=== PATIENT | male | born 1980 | race Caucasian/White ===

== ENCOUNTER → 2017-04-13 | Outpatient (CLI) | payer OTHER ==
--- NOTE | 2017-04-13 15:18 | KCIC ---
CHEST PA ONLY Clinical Indication: Positive reactor, tuberculosis Comparison: None. Findings: The cardiomediastinal silhouette is normal. Lungs are clear. There is no pneumothorax. No pleural effusion is appreciated. No acute bone abnormality. IMPRESSION: No acute cardiopulmonary process. Electronically signed by: Fernando Booth MD (04/13/2017 3:15 PM) [id number]
== END | disposition home or self-care (01) ==
LOC: KCIC 14:39
PROVIDERS: ATTEND Family Medicine
DX: R76.11 Nonspecific reaction to tuberculin skin test without active tuberculosis (principal)
CPT/HCPCS: 71010

== ENCOUNTER 2020-11-25 16:42 | Inpatient (IN) | payer OTHER ==
[~2020-11-25] VITALS: Ht 162.6 cm; Wt 78.2 kg
[2020-11-25] MEDS ORDERED: MORPHINE SULFATE 2 MG/ML VIAL. IV/SQ PRN (17:15)
[2020-11-25] MEDS ORDERED: LIDO:MAALOX 1:1 20 ML SINGLE DOSE. SWSW ONE (17:15)
[2020-11-25] MEDS ORDERED: IV NORMAL SALINE 1000ML BAG 1,000 ML IV ONE (17:15)
[2020-11-25] MEDS ORDERED: FAMOTIDINE 20 MG/2 ML VIAL IVP ONE (17:15)
[2020-11-25] MEDS ORDERED: LABETALOL 20 MG/4 ML DISP.SYRIN. IVP ONE (17:15)
--- NOTE | 2020-11-25 17:20 | PHYS DOC ---
Past Medical History Past Medical History: Hypertension General Adult EDM: Chief Complaint: HEADACHE HPI: HPI: Patient is a 39 year old male with history of hypertension not on any medicines who presents to the ED today complaining of a sudden onset of moderate general ized but mostly frontal headache and epigastric pain, symptoms began a couple minutes prior to coming to the ED while he was watching his son's soccer game. Patient denies any nausea, vomiting. Denies any photophobia. Denies any chest pain or shortness of breath. Review of Systems: Review of Systems: Constitutional: Denies fever or chills. [] Eyes: Denies change in visual acuity. [] HENT: Denies nasal congestion or sore throat. [] Respiratory: Denies cough or shortness of breath. [] Cardiovascular: Denies chest pain or edema. [] GI: Reports epigastric pain, denies nausea, vomiting, bloody stools or diarrhea. [] : Denies dysuria. [] Musculoskeletal: Denies back pain or joint pain. [] Integument: Denies rash. [] Neurologic: Reports headache, denies focal weakness or sensory changes. [] Psychiatric: Denies depression or anxiety. [] Heart Score: C/O Chest Pain: No HEART Score for Chest Pain: HEART Score for Chest Pain Response (Comments) Value History Slighlty/Non-Suspicious 0 ECG Normal 0 Age < 45 0 Risk Factors 1 or 2 Risk Factors 1 Troponin < Normal Limit 0 Total 1 Risk Factors: Risk Factors: DM, Current or recent (<one month) smoker, HTN, HLP, family history of CAD, obesity. Risk Scores: Score 0 - 3: 2.5% MACE over next 6 weeks - Discharge Home Score 4 - 6: 20.3% MACE over next 6 weeks - Admit for Clinical Observation Score 7 - 10: 72.7% MACE over next 6 weeks - Early Invasive Strategies Current Medications: Current Medications Medications (Trade) Dose Ordered Sig/Ari Start Time Stop Time Status Last Admin Dose Admin Famotidine (Pepcid Vial) 20 mg 1X ONCE 11/25/20 17:15 11/25/20 17:16 DC Labetalol HCl (Normodyne Iv Push) 10 mg 1X ONCE 11/25/20 17:15 11/25/20 17:16 DC Morphine Sulfate (Morphine Sulfate) 2 mg PRN Q15MIN PRN 11/25/20 17:15 11/26/20 17:14 Multi-Ingredient Mouthwash/Gargle (Gi Cocktail) 20 ml 1X ONCE 11/25/20 17:15 11/25/20 17:16 DC Sodium Chloride 1,000 ml @ 1,000 mls/hr 1X ONCE 11/25/20 17:15 11/25/20 18:14 Allergies: Allergies: Allergies Coded Allergies Type Severity Reaction Last Updated Verified No Known Drug Allergies 11/25/20 No Physical Exam: PE: Constitutional: Well developed, well nourished, no acute distress, non-toxic appearance. [] HENT: Normocephalic, atraumatic, bilateral external ears normal, oropharynx moist, no oral exudates, nose normal. [] Eyes: PERRLA, EOMI, conjunctiva normal, no discharge. [] Neck: Normal range of motion, no tenderness, supple, no stridor. [] Cardiovascular:Heart rate regular rhythm, no murmur [] Lungs & Thorax: Bilateral breath sounds clear to auscultation [] Abdomen: Bowel sounds normal, soft, no tenderness, no masses, no pulsatile masses. [] Skin: Warm, dry, no erythema, no rash. [] Back: No tenderness, no CVA tenderness. [] Extremities: No tenderness, no cyanosis, no clubbing, ROM intact, no edema. [] Neurologic: Alert and oriented X 3, normal motor function, normal sensory function, no focal deficits noted. Cranial nerves II through XII intact Psychologic: Affect normal, judgement normal, mood normal. [] EKG: EK interpreted by Dr. Livingston sinus rhythm Hr 61 no STEMI[] [address] Cardozo sinus rhythm HR 87 no STEMI Radiology/Procedures: Radiology/Procedures: []PROCEDURE: CT HEAD WO CONTRAST CT head without contrast 11/25/2020. Reason for exam: Sudden onset of headache. Noncontrast images were performed. Exposure: One or more of the following individualized dose reduction techniques were utilized for this examination: 1. Automated exposure control 2. Adjustment of the mA and/or kV according to patient size 3. Use of iterative reconstruction technique. FINDINGS: There is no apparent intracranial hemorrhage or abnormal extra-axial fluid collection. No mass or region of abnormal density is identified. The ventricles and basilar cisterns are normally positioned. The sinuses and mastoid air cells are clear. IMPRESSION: No apparent acute abnormality. Electronically signed by: Allison Parker Jr., MD (11/25/2020 5:28 PM) [facility] DICTATED and SIGNED BY: ALLISON PARKER Jr, MD DATE: 11/25/20 [id number] 0 PROCEDURE: ACUTE ABDOMEN SERIES Abdomen series including PA chest 11/25/2020. Reason for exam: Epigastric pain. No free air is seen. Gas is present mostly in the colon. There is no evidence of obstruction. No abnormal masses or gas collections are seen. PA view of the chest shows no infiltrate or effusion. Heart size is normal. IMPRESSION: Nonobstructive gas pattern. Electronically signed by: Allison Parker Jr., MD (11/25/2020 5:58 PM) [facility] DICTATED and SIGNED BY: ALLISON PARKER Jr, MD DATE: 11/25/20 [id number] 0 Course & Med Decision Making: Course & Med Decision Making Pertinent Labs and Imaging studies reviewed. (See chart for details) This is a 39-year-old male patient presented to the ED today with a sudden onset of a headache and epigastric pain, symptoms began a couple minutes prior to coming to the ED. Vitals on arrival to the ED temperature 97.4, heart rate 65, respirations 16 on room air, O2 sats 100%, blood pressure 209/107, patient reports previous history of hypertension, he states he never followed up with anyone. CBC with no acute findings, CMP with no acute findings. Troponin 0 0.017, repeat troponin went slightly up to 0.026. EKG was negative, chest x-ray is negative. CT of the head is negative Patient was given Lovenox IM in the ED. Spoke with Dr. Root who will follow up with patient Spoke with Dr. Hui who accepted patient for admission Lawrence Disclaimer: Lawrence Disclaimer: This electronic medical record was generated, in whole or in part, using a voice recognition dictation system. Departure Departure Impression: Primary Impression: Headache Qualified Codes: R51.9 - Headache, unspecified Additional Impressions: Epigastric pain Elevated troponin Accelerated hypertension Disposition: 09 ADMITTED INPT THIS HOSP Condition: STABLE Referrals: NO PCP (PCP) EHSAN GASCA APRN Nov 25, 2020 17:20
--- NOTE | 2020-11-25 17:30 | RAD ---
CT head without contrast 11/25/2020. Reason for exam: Sudden onset of headache. Noncontrast images were performed. Exposure: One or more of the following individualized dose reducti on techniques were utilized for this examination: 1. Automated exposure control 2. Adjustment of th e mA and/or kV according to patient size 3. Use of iterative reconstruction technique. FINDINGS: There is no apparent intracranial hemorrhage or abnormal extra-axial fluid collection. No m ass or region of abnormal density is identified. The ventricles and basilar cisterns are normally pos itioned. The sinuses and mastoid air cells are clear. IMPRESSION: No apparent acute abnormality. Electronically signed by: Kenji Parker Jr., MD (11/25/2020 5:28 PM) [facility]
[2020-11-25 17:33] LABS: BASO # 0.1 x10^3/uL (0.0-0.2); BASO % 1 % (0-3); EOS # 0.1 x10^3/uL (0.0-0.7); EOS % 1 % (0-3); HEMATOCRIT 45.3 % (39.0-53.0); HEMOGLOBIN 15.5 g/dL (13.0-17.5); LYMPH # 2.3 x10^3/uL (1.0-4.8); LYMPH % 31 % (24-48); MEAN CORPUSCULAR HEMOGLOBIN 29 pg (25-35); MEAN CORPUSCULAR HGB CONC 34 g/dL (31-37); MEAN CORPUSCULAR VOLUME 86 fL (79-100); MONO % 14 % (0-9); NEUT % 53 % (31-73); PLATELET COUNT 226 x10^3/uL (140-400); RED BLOOD COUNT 5.28 x10^6/uL (4.30-5.70); RED CELL DISTRIBUTION WIDTH 13.2 % (11.5-14.5); WHITE BLOOD COUNT 7.5 x10^3/uL (4.0-11.0)
--- NOTE | 2020-11-25 18:00 | RAD ---
Abdomen series including PA chest 11/25/2020. Reason for exam: Epigastric pain. No free air is seen. Gas is present mostly in the colon. There is no evidence of obstruction. No abno rmal masses or gas collections are seen. PA view of the chest shows no infiltrate or effusion. Heart size is normal. IMPRESSION: Nonobstructive gas pattern. Electronically signed by: Kenji Parker Jr., MD (11/25/2020 5:58 PM) [facility]el[facility]
[2020-11-25 18:11] LABS: CALCIUM 9.1 mg/dL (8.5-10.1); GFR 84.1; POTASSIUM 3.9 mmol/L (3.5-5.1)
[2020-11-25] MEDS ORDERED: KETOROLAC 30 MG/ML VIAL. IVP ONE (18:15)
[2020-11-25] MEDS ORDERED: PROCHLORPERAZINE 10 MG/2 ML VIAL. IV ONE (18:15)
[2020-11-25] MEDS ORDERED: methylPREDNISolone SOD SUCC PF 125 MG/2 ML VIAL. IV ONE (18:15)
[2020-11-25 18:16] LABS: ALBUMIN 4.1 g/dL (3.4-5.0); ALBUMIN/GLOBULIN RATIO 1.2 (1.0-1.7); MAGNESIUM 1.6 mg/dL (1.8-2.4); TOTAL BILIRUBIN 0.6 mg/dL (0.2-1.0); TOTAL PROTEIN 7.6 g/dL (6.4-8.2)
[2020-11-25 19:03] LABS: BILIRUBIN,URINE NEGATIVE (NEG); CLARITY,URINE CLEAR; COLOR,URINE YELLOW; NITRITE,URINE NEGATIVE (NEG); PH,URINE 5.5 (<5.0-8.0); PROTEIN,URINE NEGATIVE (NEG-TRACE); UROBILINOGEN,URINE 0.2 mg/dL (0.2 mg/dL)
--- NOTE | 2020-11-25 19:08 | EKG ---
[facility] [address] [place] [address] Test Date: 2020-11-25 Test Time: 17:04:11 Pat Name: GENIA BOLANOS Department: Room: Gender: General Technician: : 1980 Requested By: EHSAN GASCA Order Number: [id number] Reading MD: Measurements Intervals [place] Rate: 61 P: 42 SD: 146 QRS: 45 QRSD: 98 T: 114 QT: 380 QTc: 384 Interpretive Statements SINUS RHYTHM QRS(T) CONTOUR ABNORMALITY CONSIDER ANTEROLATERAL MYOCARDIAL DAMAGE POSSIBLY ABNORMAL ECG RI6.01 No previous ECG available for comparison
[2020-11-25 19:10] LABS: BARBITURATES NEG (NEG); BENZODIAZEPINES NEG (NEG); CANNABINOIDS NEG (NEG); COCAINE NEG (NEG); METHADONE NEG (NEG); OPIATES NEG (NEG); PHENCYCLIDINE NEG (NEG)
[2020-11-25 19:12] LABS: BACTERIA,URINE 0 /HPF (0-FEW); RBC,URINE OCC /HPF (0-2); WBC,URINE OCC /HPF (0-4)
[2020-11-25 19:16] LABS: AMPHETAMINE/METHAMPHETAMINE NEG (NEG)
[2020-11-25] MEDS ORDERED: LABETALOL 20 MG/4 ML DISP.SYRIN. IVP PRN (22:00)
[2020-11-25] MEDS ORDERED: MORPHINE SULFATE 2 MG/ML VIAL. IV PRN (22:00)
[2020-11-25] MEDS ORDERED: ONDANSETRON PF 4 MG/2 ML VIAL. IV PRN (22:00)
--- NOTE | 2020-11-25 22:44 | EKG ---
[facility] [address] [place] [address] Test Date: 2020-11-25 Test Time: 21:18:12 Pat Name: GENIA BOLANOS Department: Room: Gender: Station Detective: : 1980 Requested By: EHSAN GASCA Order Number: [id number] Reading MD: Measurements Intervals [place] Rate: 87 P: 38 [place]: 144 QRS: 27 QRSD: 102 T: 48 QT: 352 QTc: 429 Interpretive Statements SINUS RHYTHM LEFT ATRIAL ABNORMALITY ABNORMAL ECG RI6.01 No previous ECG available for comparison
[2020-11-25 23:00] VITALS: BP 162/99
[2020-11-26] MEDS ORDERED: ANTI-COAG MONITOR BY PHARMACY. MC PRN (02:00)
[2020-11-26 03:00] VITALS: BP 125/63
[2020-11-26 05:27] LABS: BASO % 0 % (0-3); EOS % 0 % (0-3); HEMATOCRIT 45.1 % (39.0-53.0); LYMPH # 0.9 x10^3/uL (1.0-4.8); LYMPH % 8 % (24-48); MEAN CORPUSCULAR HEMOGLOBIN 29 pg (25-35); MEAN CORPUSCULAR HGB CONC 33 g/dL (31-37); MEAN CORPUSCULAR VOLUME 88 fL (79-100); MONO # 0.1 x10^3/uL (0.0-1.1); MONO % 1 % (0-9); NEUT # 10.2 x10^3/uL (1.8-7.7); NEUT % 91 % (31-73); PLATELET COUNT 247 x10^3/uL (140-400); RED BLOOD COUNT 5.15 x10^6/uL (4.30-5.70); RED CELL DISTRIBUTION WIDTH 13.3 % (11.5-14.5); WHITE BLOOD COUNT 11.2 x10^3/uL (4.0-11.0)
[2020-11-26 05:53] LABS: ALBUMIN 3.8 g/dL (3.4-5.0); CALCIUM 9.4 mg/dL (8.5-10.1); CREATININE 1.1 mg/dL (0.7-1.3); GFR 75.3; TOTAL BILIRUBIN 0.5 mg/dL (0.2-1.0); TOTAL PROTEIN 7.6 g/dL (6.4-8.2)
[2020-11-26 07:00] VITALS: BP 133/81
[2020-11-26 08:07] LABS: % BANDS 6 % (0-9); % LYMPHS 14 % (24-48); % MONOS 1 % (0-10); % SEGS 79 % (35-66); PLT ESTIMATE ADEQUATE (ADEQUATE)
[2020-11-26 11:00] VITALS: BP 139/75
--- NOTE | 2020-11-26 11:33 | PDOC2 ---
[place] 11/26/20 1133: CARDIAC CONSULT DATE OF CONSULT Date of Consult DATE: 11/26/20 TIME: 11:29 REASON FOR CONSULT Reason for Consult: epigastric pain REFERRING PHYSICIAN Referring Physician: Andressa Roque APRN SOURCE Source: Chart review, Patient HISTORY OF PRESENT ILLNESS HISTORY OF PRESENT ILLNESS This is a 39 yo male who presented secondary to sudden onset of epigastric pain and frontal headache that began while he was sitting watching his son's soccer game yesterday. Patient has a history of hypertension. Was on medication approximately 4 years ago. Blood pressure improved and was taken off therapy about 2 years ago. Has not had blood pressure checked some time. He denies any chest pain, shortness of breath, dizziness, diaphoresis, or nausea/vomiting. Blood pressure was significantly elevated upon arrival. Blood pressure now controlled and symptoms have resolved. PAST MEDICAL HISTORY Cardiovascular: HTN PAST SURGICAL HISTORY Past Surgical History: No pertinent history FAMILY HISTORY Family History: Other (noncontributory ) SOCIAL HISTORY Smoke: No ALCOHOL: none Drugs: None Lives: with Family CURRENT MEDICATIONS CURRENT MEDICATIONS Current Medications Medications (Trade) Dose Ordered Sig/Ari Route PRN Reason Start Time Stop Time Status Last Admin Dose Admin Sodium Chloride 1,000 ml @ 1,000 mls/hr 1X ONCE IV 11/25/20 17:15 11/25/20 18:14 DC 11/25/20 17:34 Labetalol HCl (Normodyne Iv Push) 10 mg 1X ONCE IVP 11/25/20 17:15 11/25/20 17:16 DC 11/25/20 17:36 Multi-Ingredient Mouthwash/Gargle (Gi Cocktail) 20 ml 1X ONCE SWSW 11/25/20 17:15 11/25/20 17:16 DC 11/25/20 17:39 Famotidine (Pepcid Vial) 20 mg 1X ONCE IVP 11/25/20 17:15 11/25/20 17:16 DC 11/25/20 17:40 Methylprednisolone Sodium Succinate (SOLU-Medrol 125MG VIAL) 125 mg 1X ONCE IV 11/25/20 18:15 11/25/20 18:17 DC 11/25/20 18:29 Ketorolac Tromethamine (Toradol 30mg Vial) 30 mg 1X ONCE IVP 11/25/20 18:15 11/25/20 18:17 DC 11/25/20 18:28 Prochlorperazine Edisylate (Compazine) 10 mg 1X ONCE IV 11/25/20 18:15 11/25/20 18:17 DC 11/25/20 18:25 Enoxaparin Sodium (Lovenox 80mg Syringe) 80 mg Q12HR SQ 11/25/20 22:00 11/26/20 08:36 Info (Anti-Coagulation Monitoring By Pharmacy) 1 each PRN DAILY PRN MC SEE COMMENTS 11/26/20 02:00 11/26/20 01:49 ALLERGIES ALLERGIES: Coded Allergies: No Known Drug Allergies (Unverified , 11/25/20) ROS Review of System 14 point ROS conducted with pertinent positives noted above in hPI PHYSICAL EXAM General: Alert, Oriented X3, Cooperative, No acute distress HEENT: Atraumatic Lungs: Clear to auscultation Heart: Regular rate, Normal S1, Normal S2 Abdomen: Soft, No tenderness Extremities: No edema, Normal pulses Skin: No significant lesion Neuro: Normal speech, Sensation intact Psych/Mental Status: Mental status NL, Mood NL MUSCULOSKELETAL: Osteoarthritic changes both hands VITALS/I&O VITALS/I&O: Vital Signs Date Time Temp Pulse Resp B/P (MAP) Pulse Ox O2 Delivery O2 Flow Rate FiO2 11/26/20 11:00 98.3 84 16 139/75 (96) 96 Room Air 98.3 I & O 11/25/20 11/25/20 11/26/20 15:00 23:00 07:00 Intake Total 0 ml Output Total 300 ml Balance -300 ml LABS Lab: Laboratory Tests Test 11/25/20 17:05 11/25/20 18:57 11/25/20 20:08 11/25/20 23:16 White Blood Count 7.5 x10^3/uL (4.0-11.0) Red Blood Count 5.28 x10^6/uL (4.30-5.70) Hemoglobin 15.5 g/dL (13.0-17.5) Hematocrit 45.3 % (39.0-53.0) Mean Corpuscular Volume 86 fL (79-100) Mean Corpuscular Hemoglobin 29 pg (25-35) Mean Corpuscular Hemoglobin Concent 34 g/dL (31-37) Red Cell Distribution Width 13.2 % (11.5-14.5) Platelet Count 226 x10^3/uL (140-400) Neutrophils (%) (Auto) 53 % (31-73) Lymphocytes (%) (Auto) 31 % (24-48) Monocytes (%) (Auto) 14 % (0-9) H Eosinophils (%) (Auto) 1 % (0-3) Basophils (%) (Auto) 1 % (0-3) Neutrophils # (Auto) 4.0 x10^3/uL (1.8-7.7) Lymphocytes # (Auto) 2.3 x10^3/uL (1.0-4.8) Monocytes # (Auto) 1.0 x10^3/uL (0.0-1.1) Eosinophils # (Auto) 0.1 x10^3/uL (0.0-0.7) Basophils # (Auto) 0.1 x10^3/uL (0.0-0.2) Sodium Level 138 mmol/L (136-145) Potassium Level 3.9 mmol/L (3.5-5.1) Chloride Level 100 mmol/L (98-107) Carbon Dioxide Level 28 mmol/L (21-32) Anion Gap 10 (6-14) Blood Urea Nitrogen 12 mg/dL (8-26) Creatinine 1.0 mg/dL (0.7-1.3) Estimated GFR (Cockcroft-Gault) 84.1 BUN/Creatinine Ratio 12 (6-20) Glucose Level 134 mg/dL (70-99) H Calcium Level 9.1 mg/dL (8.5-10.1) Magnesium Level 1.6 mg/dL (1.8-2.4) L Total Bilirubin 0.6 mg/dL (0.2-1.0) Aspartate Amino Transferase (AST) 40 U/L (15-37) H Alanine Aminotransferase (ALT) 55 U/L (16-63) Alkaline Phosphatase 97 U/L (46-116) Troponin I Quantitative < 0.017 ng/mL (0.000-0.055) 0.026 ng/mL (0.000-0.055) < 0.017 ng/mL (0.000-0.055) VU-[id number]-Type Natriuretic Peptide 15 pg/mL (0-124) Total Protein 7.6 g/dL (6.4-8.2) Albumin 4.1 g/dL (3.4-5.0) Albumin/Globulin Ratio 1.2 (1.0-1.7) Lipase 131 U/L (73-393) Thyroid Stimulating Hormone (TSH) 2.563 uIU/mL (0.358-3.74) Urine Collection Type Unknown Urine Color Yellow Urine Clarity Clear Urine pH 5.5 (<5.0-8.0) Urine Specific [place] 1.020 (1.000-1.030) Urine Protein Negative mg/dL (NEG-TRACE) Urine Glucose (UA) Negative mg/dL (NEG) Urine Ketones (Stick) Negative mg/dL (NEG) Urine Blood Negative (NEG) Urine Nitrite Negative (NEG) Urine Bilirubin Negative (NEG) Urine Urobilinogen Dipstick 0.2 mg/dL (0.2 mg/dL) Urine Leukocyte Esterase Negative (NEG) Urine RBC Occ /HPF (0-2) Urine WBC Occ /HPF (0-4) Urine Squamous Epithelial Cells Occ /LPF Urine Bacteria 0 /HPF (0-FEW) Urine Mucus Slight /LPF Urine Opiates Screen Neg (NEG) Urine Methadone Screen Neg (NEG) Urine Barbiturates Neg (NEG) Urine Phencyclidine Screen Neg (NEG) Urine Amphetamine/Methamphetamine Neg (NEG) Urine Benzodiazepines Screen Neg (NEG) Urine Cocaine Screen Neg (NEG) Urine Cannabinoids Screen Neg (NEG) Urine Ethyl Alcohol Neg (NEG) Test 11/26/20 04:00 White Blood Count 11.2 x10^3/uL (4.0-11.0) H Red Blood Count 5.15 x10^6/uL (4.30-5.70) Hemoglobin 15.0 g/dL (13.0-17.5) Hematocrit 45.1 % (39.0-53.0) Mean Corpuscular Volume 88 fL (79-100) Mean Corpuscular Hemoglobin 29 pg (25-35) Mean Corpuscular Hemoglobin Concent 33 g/dL (31-37) Red Cell Distribution Width 13.3 % (11.5-14.5) Platelet Count 247 x10^3/uL (140-400) Neutrophils (%) (Auto) 91 % (31-73) H Lymphocytes (%) (Auto) 8 % (24-48) L Monocytes (%) (Auto) 1 % (0-9) Eosinophils (%) (Auto) 0 % (0-3) Basophils (%) (Auto) 0 % (0-3) Neutrophils # (Auto) 10.2 x10^3/uL (1.8-7.7) H Lymphocytes # (Auto) 0.9 x10^3/uL (1.0-4.8) L Monocytes # (Auto) 0.1 x10^3/uL (0.0-1.1) Eosinophils # (Auto) 0.0 x10^3/uL (0.0-0.7) Basophils # (Auto) 0.0 x10^3/uL (0.0-0.2) Segmented Neutrophils % 79 % (35-66) H Band Neutrophils % 6 % (0-9) Lymphocytes % 14 % (24-48) L Monocytes % 1 % (0-10) Platelet Estimate Adequate (ADEQUATE) Sodium Level 139 mmol/L (136-145) Potassium Level 4.0 mmol/L (3.5-5.1) Chloride Level 102 mmol/L (98-107) Carbon Dioxide Level 25 mmol/L (21-32) Anion Gap 12 (6-14) Blood Urea Nitrogen 14 mg/dL (8-26) Creatinine 1.1 mg/dL (0.7-1.3) Estimated GFR (Cockcroft-Gault) 75.3 BUN/Creatinine Ratio 13 (6-20) Glucose Level 188 mg/dL (70-99) H Calcium Level 9.4 mg/dL (8.5-10.1) Total Bilirubin 0.5 mg/dL (0.2-1.0) Aspartate Amino Transferase (AST) 37 U/L (15-37) Alanine Aminotransferase (ALT) 50 U/L (16-63) Alkaline Phosphatase 84 U/L (46-116) Total Protein 7.6 g/dL (6.4-8.2) Albumin 3.8 g/dL (3.4-5.0) Albumin/Globulin Ratio 1.0 (1.0-1.7) Laboratory Tests 11/25/20 17:05 11/26/20 04:00 Laboratory Tests 11/25/20 17:05 11/26/20 04:00 ASSESSMENT/PLAN ASSESSMENT/PLAN 1. Hypertensive urgency; now controlled 2. Headache; CT head without acute findings, resolved 3. Epigastric pain; non-cardiac. AMI ruled out Recommendations Norvasc added for BP control Home BP monitoring Outpatient echo as arranged Follow up in our office with Dr. Sampson as scheduled Okay to discharge from a CV standpoint. ALLISON SAMPSON MD 11/26/20 1636: CARDIAC CONSULT ASSESSMENT/PLAN ASSESSMENT/PLAN Patient seen and evaluated He is feeling better this morning. I agree with our nurse practitioners assessment and plan. Hypertensive urgency. Significantly better control on Norvasc. Continue present treatment. Resolving headache. CT scan of the head is negative for acute findings. Epigastric pain. Infarction ruled out. Continuing blood pressure control. Outpatient echo and office follow-up. Thank you for allowing us to participate in the care of your patient. NAOMY HOFFMANN APRN Nov 26, 2020 11:33 ALLISON SAMPSON MD Nov 26, 2020 16:36
[2020-11-26] MEDS ORDERED: amLODIPine BESYLATE 5 MG TABLET PO SCH (12:00)
--- NOTE | 2020-11-26 12:48 | HP ---
ADMIT DATE: 11/25/2020 CHIEF COMPLAINT: Abdominal pain, chest pain and headache. HISTORY OF PRESENT ILLNESS: The patient is a pleasant 39-year-old male who was out with his in a store and developed chest pain, abdominal pain and a headache. He presented to the ER for evaluation and was noted to have a hypertensive emergency. Rates his symptoms at 7/10. He has associated weakness, has been occurring off and on for a few hours, better with sitting, worse with movement. I discussed the case with ER physician. We are going to admit the patient and consult Cardiology. PAST MEDICAL HISTORY: Hypertension, probable noncompliance. ALLERGIES: None. FAMILY HISTORY: Hypertension. 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 He does not drink, smoke or take drugs. He is . MEDICATIONS: Reviewed, please see the MRAD. REVIEW OF SYSTEMS: GENERAL: No history of weight change, weakness or fevers. SKIN: No bruising, hair changes or rashes. EYES: No blurred, double or loss of vision. NOSE AND THROAT: No history of nosebleeds, hoarseness or sore throat. HEART: No history of palpitations, chest pain or shortness of breath on exertion. LUNGS: Denies cough, hemoptysis, wheezing or shortness of breath. GASTROINTESTINAL: Denies changes in appetite, nausea, vomiting, diarrhea or constipation. GENITOURINARY: No history of frequency, urgency, hesitancy or nocturia. NEUROLOGIC: Denies history of numbness, tingling, tremor or weakness. PSYCHIATRIC: No history of panic, anxiety or depression. ENDOCRINE: No history of heat or cold intolerance, polyuria or polydipsia. EXTREMITIES: Denies muscle weakness, joint pain, pain on walking or stiffness. PHYSICAL EXAMINATION: VITAL SIGNS: His pressures have been ranging from 209/107 down to 137/75 this morning. GENERAL: No apparent distress. Alert and oriented. HEENT: Normal cephalic atraumatic, external auditory canals are patent EYES: Extraocular muscles are intact, pupils are equally round and reactive to light and accommodation MUSCULOSKELETAL: Well developed, well nourished, good range of motion ENDOCRINE: No thyromegaly was palpated LYMPHATICS: No cervical chain or axillary nodes were noted HEMATOPOIETIC: No bruising NECK: Supple, no JVD, no thyromegaly was noted. LUNGS: Clear to auscultation in all lung brasher without rhonchi or wheezing. HEART: RRR, S1, S2 present. Peripheral pulses intact, no obvious murmurs were noted. ABDOMEN: Soft, nontender. Positive bowel sounds no organomegaly, normal bowel sounds. EXTREMITIES: Without any cyanosis, clubbing, or edema. Pedal pulses intact, Homans sign is negative. NEUROLOGIC: Normal speech, normal tone. A & O x3, moves all extremities, no obvious focal deficits. PSYCHIATRIC: Normal affect, normal mood. Stable. SKIN: No ulcerations or rashes, good skin turgor, no jaundice. VASCULAR: Good capillary refill, neurovascular bundle appears to be intact. LABORATORY DATA: White count 11, hemoglobin 15 and platelets 247. Electrolytes normal other than a glucose of 188. Drug screen negative. Urinalysis negative. CT of the head negative. Abdominal series, nonobstructive gas pattern. ASSESSMENT AND PLAN: Resolving hypertensive urgency. The patient has been admitted. We have consulted Cardiology. We will continue antihypertensive regimen. Trend labs. Cardiac monitoring. DVT prophylaxis. Full code. We started him on p.r.n. labetalol. We will go ahead and start Norvasc 10 p.o. every day. Await Cardiology input. PROGNOSIS: Guarded, but improving. HERMILA VILLA DO DR: AYO/rolando JOB#: [id number] / [id number]
--- NOTE | 2020-11-26 14:18 | NUR ---
SS following for discharge planning. SS reviewed pt chart and discussed with pt RN. Pt is from home and is currently on room air. Cardiology consulted. Discharge plan is to home when medically ready. SS will continue to follow for discharge planning.
[2020-11-26 14:58] VITALS: BP 140/80
[2020-11-26] MEDS ORDERED: AMLO5TAB4 PO (16:34)
--- NOTE | 2020-11-26 17:42 | NUR ---
Patient discharged home at approximately 1730. Discharge education given to patient and patient verbalizes understanding.
== END 2020-11-26 17:30 | disposition home or self-care (01) | DRG 305 ==
LOC: ER 16:42 → 2 NORTH 21:58
PROVIDERS: ADMIT Internal Medicine; ATTEND Internal Medicine
DX: I16.1 Hypertensive emergency (principal); Z82.49 Family history of ischemic heart disease and other diseases of the circulatory system; Z91.19 Patient's noncompliance with other medical treatment and regimen; I10 Essential (primary) hypertension; Z79.899 Other long term (current) drug therapy; R51.9 Headache, unspecified; R77.8 Other specified abnormalities of plasma proteins; R10.13 Epigastric pain
CPT/HCPCS: 36415; 70450; 74022; 80053; 80307; 81001; 83690; 83735; 83880; 84443; 84484; 85007; 85025; 93005; 96361; 96374; 96375; 99285; J0780; J1650; J1885; J2930; J3490; J7030; G0378